=== PATIENT | female | born 1970 ===

== ENCOUNTER 2023-05-29 06:45 | Day surgery (SDC) | payer OTHER ==
[~2023-05-29] VITALS: Ht 160 cm; Wt 86.2 kg
[2023-05-29] MEDS ORDERED: OXYC1TAB9 PO (11:15)
== END 2023-05-29 17:25 | disposition home or self-care (01) ==
LOC: CIR.AMB 06:45
PROVIDERS: ATTEND Surgery
DX: K62.5 Hemorrhage of anus and rectum (principal); K64.4 Residual hemorrhoidal skin tags; K64.8 Other hemorrhoids; Z20.822 Contact with and (suspected) exposure to COVID-19